=== PATIENT | female | born 1985 | race Caucasian/White ===

== ENCOUNTER 2018-12-17 00:22 | Emergency (ER) | payer OTHER ==
[~2018-12-17] VITALS: Ht 165.1 cm; Wt 111.2 kg
[2018-12-17 00:35] VITALS: Ht 165.1 cm; Wt 111.2 kg
[2018-12-17 04:08] VITALS: BP 124/76
== END 2018-12-17 04:08 | disposition home or self-care (01) ==
LOC: ED 00:22
DX: S16.1XXA Strain of muscle, fascia and tendon at neck level, initial encounter (principal); V43.32XA Unspecified car occupant injured in collision with other type car in nontraffic accident, initial encounter; W22.10XA Striking against or struck by unspecified automobile airbag, initial encounter; Y93.I9 Activity, other involving external motion; Y92.413 State road as the place of occurrence of the external cause; Y99.8 Other external cause status
CPT/HCPCS: J1885